=== PATIENT | male | born 1990 | race Caucasian/White ===

== ENCOUNTER 2021-01-17 08:54 | Emergency (ER) | payer OTHER ==
[~2021-01-17] VITALS: Ht 172.7 cm; Wt 65.8 kg
[2021-01-17] MEDS ORDERED: AMOXICILLIN 50500 MG PO (09:33)
[2021-01-17] MEDS ORDERED: HYDROCODON-ACE1 EAC7 PO (09:33)
[2021-01-17 09:39] VITALS: BP 121/68
== END 2021-01-17 09:40 | disposition home or self-care (01) ==
LOC: M.ERS 08:54
DX: K04.7 Periapical abscess without sinus (principal); F17.210 Nicotine dependence, cigarettes, uncomplicated; Z88.5 Allergy status to narcotic agent; Z90.49 Acquired absence of other specified parts of digestive tract

== ENCOUNTER 2021-03-09 06:18 | Emergency (ER) | payer OTHER ==
[~2021-03-09] VITALS: Ht 172.7 cm; Wt 68.0 kg
[~2021-03-09 06:18] MED LIST: AMOXICILLIN 50500 MG PO; HYDROCODON-ACE1 EAC7 PO
[2021-03-09] MEDS ORDERED: PROAIR HFA8.5 GM INH (06:44)
[2021-03-09] MEDS ORDERED: ZOFRAN ODT4 MG PO (06:44)
[2021-03-09 07:39] VITALS: BP 124/68
== END 2021-03-09 07:40 | disposition home or self-care (01) ==
LOC: M.ERS 06:18
DX: R05 Cough (principal); Z20.822 Contact with and (suspected) exposure to COVID-19; Z90.49 Acquired absence of other specified parts of digestive tract; Z88.5 Allergy status to narcotic agent